=== PATIENT | female | born 1995 | race American Indian/Alaskan Native ===

== ENCOUNTER 2019-06-14 19:25 | Emergency (ER) | payer SELFPAY ==
--- NOTE | 2019-06-14 20:13 | Event Note ---
ED Screening Note Date of service: 06/14/19 Time: 20:10 ED Screening Note: presents with left elbow swelling and pain and limited ROM to left elbow This initial assessment/diagnostic orders/clinical plan/treatment(s) is/are subject to change based on patients health status, clinical progression and re- assessment by fellow clinical providers in the ED. Further treatment and workup at subsequent clinical providers discretion. Patient/guardian urged not to elope from the ED as their condition may be serious if not clinically assessed and managed. Initial orders include: abscess vs infective derm xray elbow
[2019-06-14 20:14] VITALS: BP 123/76
--- NOTE | 2019-06-14 22:46 | XRay Report ---
LEFT ELBOW, 3 VIEWS 06/14/2019. INDICATION / CLINICAL INFORMATION: pain,swelling. COMPARISON: None available. FINDINGS: No skeletal abnormality. No evidence of joint effusion. Generalized soft tissue swelling overlying the elbow and dorsal aspect of the proximal ulna. Signer Name: Devan Rogers MD Signed: 06/14/2019 10:42 PM Workstation Name: [id number]
[2019-06-14] MEDS ORDERED: IBUPROFEN PO ONE (22:52)
--- NOTE | 2019-06-14 22:57 | Emergency Department Report ---
- General Chief complaint: Skin Rash Stated complaint: RASH ON LEFT ELBOW Time Seen by Provider: 06/14/19 20:10 Source: patient Mode of arrival: Ambulatory Limitations: No Limitations - History of Present Illness Initial comments: 23-year-old -Polish female presents to the emergency room for rash on left elbow times one month. Patient reports now she has swelling and not able to fully extend her left elbow. She reports she had a fever yesterday. She reports pain is 10 out of 10. MD complaint: rash Onset/Timin -: week(s) Severity scale (0 -10): 10 Quality: aching, constant Consistency: constant Improves with: none Worsens with: movement Context: none Associated symptoms: fever Treatments Prior to Arrival: none - Related Data Previous Rx's Medication Instructions Recorded Last Taken Type Clindamycin [Clindamycin CAP] 300 mg PO Q8H #30 cap 06/14/19 Unknown Rx Ibuprofen [Motrin 600 MG tab] 600 mg PO Q8H #30 tablet 06/14/19 Unknown Rx Allergies Allergy/AdvReac Type Severity Reaction Status Date / Time amoxicillin Allergy Hives Verified 06/14/19 19:31 Penicillins Allergy Hives Verified 06/14/19 19:31 Abscess Boil HPI - HPI Chief Complaint: Skin Rash Stated Complaint: RASH ON LEFT ELBOW Time Seen by Provider: 06/14/19 20:10 Home Medications: Previous Rx's Medication Instructions Recorded Last Taken Type Clindamycin [Clindamycin CAP] 300 mg PO Q8H #30 cap 06/14/19 Unknown Rx Ibuprofen [Motrin 600 MG tab] 600 mg PO Q8H #30 tablet 06/14/19 Unknown Rx Allergies/Adverse Reactions: Allergies Allergy/AdvReac Type Severity Reaction Status Date / Time amoxicillin Allergy Hives Verified 06/14/19 19:31 Penicillins Allergy Hives Verified 06/14/19 19:31 ED Review of Systems ROS: Stated complaint: RASH ON LEFT ELBOW Other details as noted in HPI ED Past Medical Hx - Past Medical History Previous Medical History?: Yes Additional medical history: Eczema - Surgical History Past Surgical History?: Yes Additional Surgical History: Tonsillectomy - Social History Smoking Status: Never Smoker Substance Use Type: None - Medications Home Medications: Home Medications Medication Instructions Recorded Confirmed Last Taken Type Clindamycin [Clindamycin CAP] 300 mg PO Q8H #30 cap 06/14/19 Unknown Rx Ibuprofen [Motrin 600 MG tab] 600 mg PO Q8H #30 tablet 06/14/19 Unknown Rx ED Physical Exam - General Limitations: No Limitations ED Course Vital Signs 06/14/19 20:10 Temperature 98.7 F Pulse Rate 98 H Respiratory 18 Rate Blood Pressure 123/76 O2 Sat by Pulse 100 Oximetry ED Medical Decision Making - Radiology Data Patient: ADELE MIRANDA MR#: [id number] : 1995 Acct:[id number] Age/Sex: 23 / F ADM Date: 06/14/19 Loc: ED Attending Dr: Ordering Physician: APOLONIA GARCIA Date of Service: 06/14/19 Procedure(s): XR elbow 3+V LT Accession Number(s): [id number] cc: APOLONIA GARCIA Fluoro Time In Minutes: LEFT ELBOW, 3 VIEWS 06/14/2019. INDICATION / CLINICAL INFORMATION: pain,swelling. COMPARISON: None available. FINDINGS: No skeletal abnormality. No evidence of joint effusion. Generalized soft tissue swelling overlying the elbow and dorsal aspect of the proximal ulna. Signer Name: Devan Rogers MD Signed: 06/14/2019 10:42 PM Workstation Name: [id number] Transcribed By: GA Dictated By: Devan Rogers MD Electronically Authenticated By: Devan Rogers MD Signed Date/Time: 06/14/192241 DD/ 39 TD/TT: - Medical Decision Making 23-year-old -Polish female presents to the emergency room for rash on left elbow times one month. Patient reports now she has swelling and not able to fully extend her left elbow. She reports she had a fever yesterday. She reports pain is 10 out of 10. Critical care attestation.: If time is entered above; I have spent that time in minutes in the direct care of this critically ill patient, excluding procedure time. ED Disposition Clinical Impression: Cellulitis of left elbow Disposition: DC-01 TO HOME OR SELFCARE Is pt being admited?: No Does the pt Need Aspirin: No Condition: Stable Instructions: Cellulitis (ED) Additional Instructions: Complete antibiotics as prescribed. Pain medication as needed. Follow up with her primary care provider if his symptoms persist or gets worse. Prescriptions: Clindamycin [Clindamycin CAP] 300 mg PO Q8H #30 cap Ibuprofen [Motrin 600 MG tab] 600 mg PO Q8H #30 tablet Referrals: [facility] [Provider Group] - 3-5 Days Forms: Work/School Release Form(ED)
== END 2019-06-14 23:15 | disposition home or self-care (01) ==
LOC: ED 19:25
DX: L03.114 Cellulitis of left upper limb (principal); Z90.89 Acquired absence of other organs; Z88.1 Allergy status to other antibiotic agents; Z88.0 Allergy status to penicillin